=== PATIENT | female | born 1980 | race Caucasian/White ===

== ENCOUNTER 2022-08-13 09:25 | Outpatient (CLI) | payer BC | END 2022-08-13 09:26 | disposition home or self-care (01) | LOC: CSHMAMMO 09:25 | PROVIDERS: ATTEND Obstetrics & Gynecology | DX: Z12.31 Encounter for screening mammogram for malignant neoplasm of breast (principal); N63.10 Unspecified lump in the right breast, unspecified quadrant; Z80.3 Family history of malignant neoplasm of breast; Z98.890 Other specified postprocedural states | CPT/HCPCS: 77063; 77067 ==

== ENCOUNTER 2024-08-31 08:28 | Outpatient (CLI) | payer BC | END 2024-08-31 08:29 | disposition home or self-care (01) | LOC: CSHMAMMO 08:28 | PROVIDERS: ATTEND Obstetrics & Gynecology | DX: Z12.31 Encounter for screening mammogram for malignant neoplasm of breast (principal); R92.1 Mammographic calcification found on diagnostic imaging of breast; Z80.3 Family history of malignant neoplasm of breast; Z98.890 Other specified postprocedural states | CPT/HCPCS: 77063; 77067 ==

== ENCOUNTER → 2024-10-03 | Day surgery (SDC) | payer BC | LOC: CSHMAMMO 07:28 | PROVIDERS: ATTEND Obstetrics & Gynecology | PROC: 0HBT3ZX Excision of Right Breast, Percutaneous Approach, Diagnostic (ICD-10-PCS; principal; 2024-10-03) | DX: D05.11 Intraductal carcinoma in situ of right breast (principal); R92.1 Mammographic calcification found on diagnostic imaging of breast | CPT/HCPCS: 19081; 76098; 88305 ==

== ENCOUNTER 2024-11-07 11:55 | Outpatient (CLI) | payer BC ==
[2024-11-07 13:55] LABS: BHCG - Serum Negative (NEGATIVE); Pregs Control Background? CLEAR/WHITE (CLR/WHITE); Pregs Control Bar Appear? YES (CONTROL BAR)
== END 2024-11-07 11:56 | disposition home or self-care (01) ==
LOC: CSHLAB 11:55
PROVIDERS: ATTEND Surgery
DX: Z01.812 Encounter for preprocedural laboratory examination (principal); D05.11 Intraductal carcinoma in situ of right breast
CPT/HCPCS: 84703

== ENCOUNTER 2024-11-09 07:26 | Day surgery (SDC) | payer BC ==
[2024-11-07 12:28] VITALS: BMI 33.5
[2024-11-09] MEDS ORDERED: Bupivacaine HCl 0.5%/Epinephrine 1:200,000/PF 30 ml Vial ONE (10:43)
[2024-11-09] MEDS ORDERED: PROPOFOL 20 ML ONE (12:03)
[2024-11-09] MEDS ORDERED: Midazolam HCl 2 mg/2 ml Vial ONE (12:04)
[2024-11-09] MEDS ORDERED: fentaNYL 50 mcg/mL 1 mL Vial ONE ×3 (12:04→12:43)
[2024-11-09] MEDS ORDERED: Lidocaine 1% PF 5 ML VIAL ONE (12:05)
[2024-11-09] MEDS ORDERED: Dexamethasone 4 mg/ml Vial ONE (12:06)
[2024-11-09] MEDS ORDERED: Ondansetron PF 4 MG/2 ML Vial ONE (12:06)
[2024-11-09] MEDS ORDERED: CEFAZOLIN 2 GM VIAL ONE (12:12)
[2024-11-09] MEDS ORDERED: ePHEDrine Sulfate 50 MG/10 ML VIAL ONE (13:07)
== END 2024-11-09 15:07 | disposition home or self-care (01) ==
LOC: CSHSDC 07:26
PROVIDERS: ATTEND Surgery
PROC: 0HBT0ZZ Excision of Right Breast, Open Approach (ICD-10-PCS; principal; 2024-11-09)
DX: D05.11 Intraductal carcinoma in situ of right breast (principal); R92.0 Mammographic microcalcification found on diagnostic imaging of breast; E03.9 Hypothyroidism, unspecified; Z88.8 Allergy status to other drugs, medicaments and biological substances; Z79.890 Hormone replacement therapy; Z79.4 Long term (current) use of insulin; Z79.2 Long term (current) use of antibiotics; Z79.899 Other long term (current) drug therapy
CPT/HCPCS: 19281; 76098; 88307; 88341; 88342; C1713; J1100; J2250; J2405; J2704; J3010

== ENCOUNTER 2024-12-07 08:50 | Day surgery (SDC) | payer BC ==
[2024-12-05 15:40] VITALS: BMI 32.8
[2024-12-07] MEDS ORDERED: Bupivacaine HCl 0.5%/Epinephrine 1:200,000/PF 30 ml Vial ONE (10:08)
[2024-12-07] MEDS ORDERED: CEFAZOLIN 2 GM VIAL ONE (10:08)
[2024-12-07] MEDS ORDERED: Lidocaine 2% PF 5 ML VIAL ONE (10:10)
[2024-12-07] MEDS ORDERED: PROPOFOL 20 ML ONE (10:10)
[2024-12-07] MEDS ORDERED: fentaNYL 50 mcg/mL 1 mL Vial ONE ×4 (10:11→10:57)
[2024-12-07] MEDS ORDERED: Ondansetron PF 4 MG/2 ML Vial ONE (10:33)
[2024-12-07] MEDS ORDERED: Dexamethasone 4 mg/ml Vial ONE (10:33)
[2024-12-07] MEDS ORDERED: Ketorolac Tromethamine 30 MG (1 mL) VIAL ONE (11:26)
[2024-12-07] MEDS ORDERED: Meperidine HCl/PF 25 MG (1 mL) VIAL ONE (11:38)
== END 2024-12-07 12:50 | disposition home or self-care (01) ==
LOC: CSHSDC 08:50
PROVIDERS: ATTEND Surgery
PROC: 0HBT0ZZ Excision of Right Breast, Open Approach (ICD-10-PCS; principal; 2024-12-07)
DX: D05.11 Intraductal carcinoma in situ of right breast (principal); N62 Hypertrophy of breast; E03.9 Hypothyroidism, unspecified; Z79.890 Hormone replacement therapy; Z88.8 Allergy status to other drugs, medicaments and biological substances; Z79.899 Other long term (current) drug therapy
CPT/HCPCS: 88307; C1713; J1100; J1885; J2175; J2405; J2704; J3010

== ENCOUNTER 2025-08-07 10:25 | Outpatient (CLI) | payer BC | END 2025-08-07 10:26 | disposition home or self-care (01) | LOC: CSHMAMMO 10:25 | PROVIDERS: ATTEND Surgery | DX: Z86.000 Personal history of in-situ neoplasm of breast (principal) | CPT/HCPCS: 77066; G0279 ==